=== PATIENT | male | born 1990 | race Caucasian/White ===

== ENCOUNTER 2016-07-25 19:00 | Emergency (ER) | payer OTHER ==
[~2016-07-25] VITALS: Ht 172.7 cm; Wt 111.1 kg
[2016-07-25 19:00] VITALS: BP 163/97
== END 2016-07-25 19:30 | disposition home or self-care (01) ==
LOC: ER 19:00
DX: R59.1 Generalized enlarged lymph nodes (principal); B34.9 Viral infection, unspecified; F10.99 Alcohol use, unspecified with unspecified alcohol-induced disorder